=== PATIENT | female | born 1955 | race Caucasian/White ===

== ENCOUNTER 2023-08-31 14:18 | Emergency (ER) | payer MEDICARE, OTHER, SELFPAY ==
[2023-08-31 14:35] VITALS: BP 145/90
[2023-08-31 15:18] VITALS: BMI 23.7
[2023-08-31 15:43] LABS: Amphetamines Negative (Negative); Barbiturates Negative (Negative); Benzodiazepines Negative (Negative); Buprenorphine Negative (Negative); Cocaine Negative (Negative); Marijuana Negative (Negative); Methadone Negative (Negative); Methamphetamines Negative (Negative); Opiates Negative (Negative); Phencyclidine Negative (Negative); Tricyclic Antidepressants Negative (Negative)
--- NOTE | 2023-08-31 15:53 | ED.GENMED ---
History of Present Illness
General
Chief Complaint: Fainting/Passed Out
Source: patient
Exam Limitations: none
Time Seen by Provider: 08/31/23 15:29
History of Present Illness
History of Present Illness:
68-year-old female presents for evaluation after episode that happened last evening. She went to dinner had a glass of wine with a full meal then went home with her friends and her . They had another drink at home. They subsequently walked
their friends out to their car. Their friends left and shortly after this both her and the patient fell to the ground. They both describe a sensation that they were awake but were unable to move her arms or legs. They sustained no
injuries from the fall. Patient currently denies chest pain or shortness of breath. They spoke with Panfilo howell. They recommend he come here for medical evaluation. They have no complaints offer currently
Past History
Past History
ED Past Medical History: GERD, HTN and Hypothyroidism
Phy Exam
Physical Exam
Physical Exam:
General: Well-appearing female no acute respiratory distress
HEENT: Normocephalic abrasion noted to the right lateral eyebrow
Heart: Regular rate and rhythm no murmurs
Lungs: Clear no wheeze or rales
Extremities: No cyanosis
Neurologic: Alert and oriented x 3 no facial asymmetry normal gait conversing appropriately
Course
Orders/Labs/Results
Orders:
Orders
08/31/23 14:54
Electrocardiogram (*1) Urgent
Reason for Study: Syncope
EKG- Treatment ONCE
08/31/23 15:15
Urine Drug Abuse Screen Urgent
Date Specimen was Collected: 08/31/23
Time Specimen was Collected: 15:05
08/31/23 15:58
Carboxyhemoglobin Urgent
Complete Blood Count/With Diff Urgent
Comprehensive Metabolic Panel Urgent
Abnormal Lab Results
08/31/23
15:58
RBC 3.86 L 10^6/uL
(4.20-5.40)
Hct 35.5 L %
(37.0-47.0)
MCH 32.9 H pg
(27.0-31.0)
Absolute Monos (auto) 0.9 H 10^3/uL
(0.1-0.6)
Monocytes % 11.3 H %
(1.7-9.3)
Glucose 117 H mg/dl
(70-99)
08/31/23 15:58
08/31/23 15:58
Vital Signs
Initial and Last Documented VS:
Initial Vital Signs
Temp Pulse Resp BP Pulse Ox
98.1 F 67 18 145/90 97
08/31/23 14:35 08/31/23 14:35 08/31/23 14:35 08/31/23 14:35 08/31/23 14:35
Last Documented Vital Signs
Temp Pulse Resp BP Pulse Ox
98.1 F 67 18 145/90 97
08/31/23 14:35 08/31/23 14:35 08/31/23 14:35 08/31/23 14:35 08/31/23 14:35
MDM/Problems Addressed
Differential Diagnosis Includes:
Patient presents for evaluation of episode that occurred last evening with diffuse weakness causing her to fall. She was unable to move her arms and legs. This lasted for around 10 to 15 minutes. Etiology of episode unclear. Drug screen pending.
EKG shows sinus rhythm. Will check for electrolyte abnormality or anemia.
*Critical Care Note
Total Time (30-74mins, 75-104mins- exclusive of procedures): Not Applicable
Update Note
Update Note:
Labs reviewed. Urine drug screen negative carboxyhemoglobin normal level. Blood count and chemistry profile without significant finding. Patient has been benign here to baseline. Etiology of last night weakness episode unclear but stable for
discharge
ED Attending Note
-
Portions of this chart may have been created with voice recognition software.� Occasional wrong word or��sound alike� substitutions may have occurred due to the inherent limitations of voice recognition software.
Discharge Plan
Departure
Patient Disposition: Home (Routine Discharge)
Date of Disposition: 08/31/23
Time of Disposition: 17:06
Patient with high blood pressure during this ER visit?: No
Discharge Problem:
Weakness
Instructions: Syncope (Fainting) (DC)
Prescriptions:
No Action
esomeprazole magnesium [Nexium] 40 MG capsule,delayed release(DR/EC)
40 mg PO DAILY
hydrochlorothiazide 12.5 MG capsule
12.5 mg PO DAILY
levothyroxine 112 MCG tablet
112 mcg PO DAILY
Black Cohosh
1 cap PO DAILY
Calcium 800mg
2 tab PO DAILY
VITAMIN B COMPLEX
1 tab PO DAILY
Vitamin E
1 cap PO DAILY
Referrals:
UNKNOWN - PT DOES,NOT KNOW [Unknown Provider] -
Activity Restrictions/Additional Instructions:
Please return here if needed otherwise follow-up with family doctor
Interventions
Interventions:
*Risk Screen - Suicide Last Done: 08/31/23 15:18
*General Assessment Last Done: 08/31/23 15:19
*Neglect/Abuse Screening Last Done: 08/31/23 15:18
ED- Fall Risk Assessment Last Done: 08/31/23 15:18
*ED COVID-19 Vaccine History Last Done: 08/31/23 15:18
ED- Cardiac Assessment Last Done: 08/31/23 15:29
ED- Neurological Assessment Last Done: 08/31/23 15:29
Discharge Date and Time
Print Language: SLOVENIAN
[2023-08-31 16:20] LABS: Carboxyhemoglobin 1.7 %
[2023-08-31 16:21] LABS: % Basophils 0.9 % (0-2); % Eosinophils 0.5 % (0-6); % Immature Granulocytes 0.3 % (0-0.5); % Monocytes 11.3 % (1.7-9.3); Absolute Basophils 0.1 10^3/uL (0-0.2); Absolute Lymphocytes 1.7 10^3/uL (1.2-3.4); Absolute Monocytes 0.9 10^3/uL (0.1-0.6); Absolute Neutrophils 4.9 10^3/uL (1.4-6.5); Hematocrit 35.5 % (37.0-47.0); Hemoglobin 12.7 g/dL (12.0-16.0); Mean Corp Hgb Conc. 35.8 g/dL (33.0-37.0); Mean Corpuscular Hgb 32.9 pg (27.0-31.0); Mean Platelet Volume 9.9 fL (7.4-10.4); Nucleated Red Blood Cells % 0 %; Platelet Count 351 10^3/uL (130-400); Red Blood Cell Count 3.86 10^6/uL (4.20-5.40); White Blood Cell Count 7.5 10^3/uL (4.8-10.8)
[2023-08-31 16:45] LABS: ALT (SGPT) 24 U/L (0-35); AST (SGOT) 31 U/L (14-36); Albumin 4.8 g/dl (3.5-5.0); Alkaline Phosphatase 63 U/L (38-126); Blood Urea Nitrogen 12 mg/dl (7-17); Calcium 10.1 mg/dl (8.4-10.2); Carbon Dioxide 26 mmol/L (22-30); Chloride 100 mmol/L (98-107); Estimated Creatinine Clearance 65 ml/min; Glucose 117 mg/dl (70-99); Potassium 4.1 mmol/L (3.5-5.1); Sodium 136 mmol/L (135-145); Total Bilirubin 0.6 mg/dl (0.2-1.3); Total Protein 7.5 g/dl (6.3-8.2); eGFR > 60.00
== END 2023-08-31 17:21 | disposition home or self-care (01) ==
LOC: EMR 14:18
PROVIDERS: Physician Assistant; EMERGENCY PHYSICIAN Emergency Medicine; FAMILY PHYSICIAN Student in an Organized Health Care Education/Training Program
DX: R53.1 Weakness (principal); K21.9 Gastro-esophageal reflux disease without esophagitis; I10 Essential (primary) hypertension; E03.9 Hypothyroidism, unspecified
CPT/HCPCS: 99283; 80053; 80306; 82375; 85025; 93005

== ENCOUNTER → 2023-10-03 08:54 | Outpatient (REF) | payer MEDICARE, OTHER, SELFPAY | LOC: HWWDC 08:54 | PROVIDERS: ATTENDING PHYSICIAN Obstetrics & Gynecology Gynecology; FAMILY PHYSICIAN Student in an Organized Health Care Education/Training Program | DX: Z12.31 Encounter for screening mammogram for malignant neoplasm of breast (principal) | CPT/HCPCS: 77063; 77067 ==

== ENCOUNTER → 2024-03-05 08:40 | Outpatient (REF) | payer MEDICARE, OTHER, SELFPAY | LOC: HWRAD 08:40 | PROVIDERS: ATTENDING PHYSICIAN Student in an Organized Health Care Education/Training Program; FAMILY PHYSICIAN Student in an Organized Health Care Education/Training Program | DX: M85.80 Other specified disorders of bone density and structure, unspecified site (principal); M81.0 Age-related osteoporosis without current pathological fracture | CPT/HCPCS: 77080 ==

== ENCOUNTER → 2024-10-04 11:33 | Outpatient (REF) | payer OTHER, SELFPAY | LOC: HWWDC 11:33 | PROVIDERS: ATTENDING PHYSICIAN Obstetrics & Gynecology Gynecology; FAMILY PHYSICIAN Student in an Organized Health Care Education/Training Program | DX: Z12.31 Encounter for screening mammogram for malignant neoplasm of breast (principal) | CPT/HCPCS: 77063; 77067 ==